=== PATIENT | male | born 1995 | race Two or more races ===

== ENCOUNTER → 2022-11-11 | Outpatient (CLI) | payer OTHER | END | disposition home or self-care (01) | LOC: LAB 10:39 | DX: Z20.828 Contact with and (suspected) exposure to other viral communicable diseases (principal); Z20.818 Contact with and (suspected) exposure to other bacterial communicable diseases ==

== ENCOUNTER 2024-05-18 18:59 | Emergency (ER) | payer OTHER ==
[~2024-05-18] VITALS: Ht 165.1 cm; Wt 72.6 kg
[2024-05-18] MEDS ORDERED: CEFTRIAXONE SODIUM 1,000 MG VIAL IM STA (20:35)
[2024-05-18] MEDS ORDERED: METHYLPREDNISOLONE SOD SUCC 125 MG VIAL IM STA (20:35)
[2024-05-18] MEDS ORDERED: IPRATROPIUM BROMIDE 0.5 MG/2.5 ML AMPUL.NEB IH SCH (20:45)
[2024-05-18] MEDS ORDERED: IPRATROPIUM BROMIDE 0.5 MG/2.5 ML AMPUL.NEB IH ONE (21:07)
[2024-05-18] MEDS ORDERED: LIDOCAINE HCL 1% 10ML VIAL ONE (21:28)
[2024-05-18] MEDS ORDERED: WATER FOR INJ.,BACTERIOSTATIC 30 ML VIAL IJ ONE (21:28)
[2024-05-18] MEDS ORDERED: METHYLPREDNISOLONE SOD SUCC 125 MG VIAL ONE (21:28)
[2024-05-18] MEDS ORDERED: CEFTRIAXONE SODIUM 1,000 MG VIAL ONE (21:29)
[2024-05-18 21:51] LABS: HEMATOCRIT 38.8 % (39.0-48.0); HEMOGLOBIN 12.9 g/dL (13-16.00); MEAN CELL VOLUME 75.7 fL (80.0-100.00); MEAN CORPUSCULAR HEMOGLOBIN 25.2 pg (27.00-32.0); MEAN CORPUSCULAR HGB CONC 33.3 g/dl (32.0-36.0); PLATELET COUNT 209 K/uL (150-450); RED BLOOD COUNT 5.13 M/uL (4.00-6.00); RED CELL DISTRIBUTION WIDTH 14.1 % (11.5-14.5)
== END 2024-05-18 22:35 | disposition home or self-care (01) ==
LOC: ER 19:01
PROVIDERS: General Practice
DX: J06.9 Acute upper respiratory infection, unspecified (principal)